=== PATIENT | male | born 1950 | race Caucasian/White ===

== ENCOUNTER 2019-12-06 17:37 | Observation (INO) | payer OTHER, MEDICARE ==
[2019-12-06 18:26] LABS: Basophils # (A) 0.1 k/uL (0-0.2); Basophils % (A) 1 %; Eosinophils # (A) 0.2 k/uL (0-0.7); Eosinophils % (A) 3 %; HCT 53.8 % (39.0-53.0); HGB 17.5 gm/dL (13.0-17.5); Lymphocytes % (A) 28 %; MCH 29.4 pg (25.0-35.0); MCHC 32.6 g/dL (31.0-37.0); MCV 90.1 fL (80.0-100.0); Mean Platelet Volume 8.4; Monocytes # (A) 0.5 k/uL (0-1.0); Monocytes % (A) 7 %; Neutrophils # (A) 4.2 k/uL (1.3-7.7); Neutrophils % (A) 58 %; Platelet Count 229 k/uL (150-450); RBC 5.97 m/uL (4.30-5.90); RDW 13.2 % (11.5-15.5); WBC 7.3 k/uL (3.8-10.6)
[2019-12-06 18:40] LABS: Albumin 4.6 g/dL (3.5-5.0); Calcium 9.8 mg/dL (8.4-10.2); Magnesium 1.9 mg/dL (1.6-2.3); Potassium 4.8 mmol/L (3.5-5.1); Total Bilirubin 0.7 mg/dL (0.2-1.3); Total Protein 7.7 g/dL (6.3-8.2)
[2019-12-06 18:44] LABS: Partial Thromboplastin Time 23.1 sec (22.0-30.0); Prothrombin Time 10.5 sec (9.0-12.0)
[2019-12-06] MEDS ORDERED: HEPARIN SODIUM,PORCINE 5,000 UNIT/ML 1 ML VIAL IV ONE (18:55)
[2019-12-06] MEDS ORDERED: HEPARIN SODIUM,PORCINE 5,000 UNIT/ML 1 ML VIAL IV PRN (18:55)
--- NOTE | 2019-12-06 18:59 | ED ---
Arrhythmia/Palpitations HPI - General Chief Complaint: Arrhythmia/Palpitations Stated Complaint: [facility] Time Seen by Provider: 12/06/19 17:40 Source: patient Mode of arrival: ambulatory Limitations: no limitations - History of Present Illness Initial Comments: Patient is a 69-year-old male who presents emergency department with reported new-onset A. fib. The patient reports that he was at the [facility] today for follow-up for sinusitis that he is dealing with since the end of September. He states he's been on 2 different antibiotics for which she was placed on med express. He is also had a course of Flonase and steroids. Patient has had p ersistent nasal drainage and sinus pressure and therefore followed up with his primary care doctor today. Her doctor noted that the patient's heart rate was irregular. He did an EKG and found the patient being A. fib. Denies a history of similar. Denies any chest pain or shortness of breath. Has reported to fatigue over the past several weeks which he thought was related to his infection. Patient denies previous history of cardiac disease. No ripping or tearing patient is back. No fevers or chills. No calf pain or swelling. No pedal edema. Denies melenic stools or hematochezia. No other alleviating, precipitating or modifying factors - Related Data Home Medications Medication Instructions Recorded Confirmed Cephalexin [Keflex] 500 mg PO TID 12/06/19 12/06/19 Fluticasone Nasal [place] [Flonase 2 spr EA NOSTRIL DAILY 12/06/19 12/06/19 Nasal Rison] Multivitamins, Thera [Multivitamin 1 tab PO DAILY 12/06/19 12/06/19 (formulary)] Previous Rx's Medication Instructions Recorded Apixaban [Eliquis] 5 mg PO BID #60 tab 12/07/19 Metoprolol Tartrate [Lopressor] 25 mg PO BID #60 tab 12/08/19 lisinopriL [Zestril] 20 mg PO DAILY tab 12/08/19 Allergies Allergy/AdvReac Type Severity Reaction Status Date / Time No Known Allergies Allergy Verified 12/06/19 18:13 Review of Systems ROS Statement: Those systems with pertinent positive or pertinent negative responses have been documented in the HPI. ROS Other: All systems not noted in ROS Statement are negative. Past Medical History Past Medical History: Atrial Fibrillation, Hypertension History of Any Multi-Drug Resistant Organisms: None Reported Past Surgical History: Hernia Repair Past Psychological History: No Psychological Hx Reported Smoking Status: Former smoker Past Alcohol Use History: None Reported Past Drug Use History: None Reported General Exam Limitations: no limitations General appearance: alert, in no apparent distress Head exam: Present: atraumatic, normocephalic, normal inspection Eye exam: Present: normal appearance, PERRL, EOMI. Absent: scleral icterus, conjunctival injection, periorbital swelling ENT exam: Present: normal exam, mucous membranes moist Neck exam: Present: normal inspection. Absent: tenderness, meningismus, lymphadenopathy Respiratory exam: Present: normal lung sounds bilaterally. Absent: respiratory distress, wheezes, rales, rhonchi, stridor Cardiovascular Exam: Present: regular rate, irregular rhythm, normal heart sounds. Absent: systolic murmur, diastolic murmur, rubs, gallop, clicks GI/Abdominal exam: Present: soft, normal bowel sounds. Absent: distended, tenderness, guarding, rebound, rigid Extremities exam: Present: normal inspection, full ROM, normal capillary refill. Absent: tenderness, pedal edema, joint swelling, calf tenderness Back exam: Present: normal inspection Neurological exam: Present: alert, oriented X3, CN II-XII intact Psychiatric exam: Present: normal affect, normal mood Skin exam: Present: warm, dry, intact, normal color. Absent: rash Course Vital Signs 12/06/19 12/06/19 12/06/19 17:41 19:06 19:21 Temperature 98.4 F 98.5 F Pulse Rate 90 96 96 Respiratory 20 16 18 Rate Blood Pressure 172/101 149/117 155/120 O2 Sat by Pulse 99 98 Oximetry 12/06/19 19:56 Temperature Pulse Rate 90 Respiratory 18 Rate Blood Pressure 150/111 O2 Sat by Pulse Oximetry EKG Findings - EKG Comments: EKG Findings:: EKG demonstrates atrial fibrillation with a rate of 88. Her S 88. QTC of 406. Inverted T-wave in lead 3. No acute ST segment elevations Medical Decision Making - Medical Decision Making Upon the patient is placed in room 7. A thorough history and physical exam was performed. Patient is a new onset A. fib with a controlled ventricular rate. Patient has no contra indications to anticoagulation. Laboratory studies were conducted and a chest x-ray was performed. Lab studies demonstrate a hemoglobin of 17.5. Chest x-ray demonstrates no acute intrathoracic process. The patient is started on heparin drip as he has no contraindications. Patient will be admitted for cardiology consultation. Patient agree to this. Discussed case with Clemencia from [facility]. Patient was then transported to floor in stable condition - Lab Data Result diagrams: 12/08/19 06:06 12/07/19 05:39 Lab Results 12/06/19 12/06/19 12/06/19 Range/Units 18:15 18:15 18:15 WBC 7.3 (3.8-10.6) k/uL RBC 5.97 H (4.30-5.90) m/uL Hgb 17.5 (13.0-17.5) gm/dL Hct 53.8 H (39.0-53.0) % MCV 90.1 (80.0-100.0) fL MCH 29.4 (25.0-35.0) pg MCHC 32.6 (31.0-37.0) g/dL RDW 13.2 (11.5-15.5) % Plt Count 229 (150-450) k/uL Neutrophils % 58 % Lymphocytes % 28 % Monocytes % 7 % Eosinophils % 3 % Basophils % 1 % Neutrophils # 4.2 (1.3-7.7) k/uL Lymphocytes # 2.0 (1.0-4.8) k/uL Monocytes # 0.5 (0-1.0) k/uL Eosinophils # 0.2 (0-0.7) k/uL Basophils # 0.1 (0-0.2) k/uL PT 10.5 (9.0-12.0) sec INR 1.0 (<1.2) APTT 23.1 (22.0-30.0) sec Sodium 136 L (137-145) mmol/L Potassium 4.8 (3.5-5.1) mmol/L Chloride 102 (98-107) mmol/L Carbon Dioxide 26 (22-30) mmol/L Anion Gap 8 mmol/L BUN 14 (9-20) mg/dL Creatinine 1.02 (0.66-1.25) mg/dL Est GFR (CKD-EPI)AfAm 88 (>60 ml/min/1.73 sqM) Est GFR (CKD-EPI)NonAf 76 (>60 ml/min/1.73 sqM) Glucose 92 (74-99) mg/dL Calcium 9.8 (8.4-10.2) mg/dL Magnesium 1.9 (1.6-2.3) mg/dL Total Bilirubin 0.7 (0.2-1.3) mg/dL AST 28 (17-59) U/L ALT 21 (4-49) U/L Alkaline Phosphatase 67 (38-126) U/L Troponin I (0.000-0.034) ng/mL Total Protein 7.7 (6.3-8.2) g/dL Albumin 4.6 (3.5-5.0) g/dL TSH 2.690 (0.465-4.680) mIU/L 12/06/19 Range/Units 18:15 WBC (3.8-10.6) k/uL RBC (4.30-5.90) m/uL Hgb (13.0-17.5) gm/dL Hct (39.0-53.0) % MCV (80.0-100.0) fL MCH (25.0-35.0) pg MCHC (31.0-37.0) g/dL RDW (11.5-15.5) % Plt Count (150-450) k/uL Neutrophils % % Lymphocytes % % Monocytes % % Eosinophils % % Basophils % % Neutrophils # (1.3-7.7) k/uL Lymphocytes # (1.0-4.8) k/uL Monocytes # (0-1.0) k/uL Eosinophils # (0-0.7) k/uL Basophils # (0-0.2) k/uL PT (9.0-12.0) sec INR (<1.2) APTT (22.0-30.0) sec Sodium (137-145) mmol/L Potassium (3.5-5.1) mmol/L Chloride (98-107) mmol/L Carbon Dioxide (22-30) mmol/L Anion Gap mmol/L BUN (9-20) mg/dL Creatinine (0.66-1.25) mg/dL Est GFR (CKD-EPI)AfAm (>60 ml/min/1.73 sqM) Est GFR (CKD-EPI)NonAf (>60 ml/min/1.73 sqM) Glucose (74-99) mg/dL Calcium (8.4-10.2) mg/dL Magnesium (1.6-2.3) mg/dL Total Bilirubin (0.2-1.3) mg/dL AST (17-59) U/L ALT (4-49) U/L Alkaline Phosphatase (38-126) U/L Troponin I <0.012 (0.000-0.034) ng/mL Total Protein (6.3-8.2) g/dL Albumin (3.5-5.0) g/dL TSH (0.465-4.680) mIU/L Critical Care Time Critical Care Time: Yes Critical Care Time: 32 minutes Disposition Clinical Impression: Atrial fibrillation, Hypertension Disposition: ADMITTED IP TO THIS [facility] Condition: Stable Is patient prescribed a controlled substance at d/c from ED?: No Decision to Admit Reason: Admit from EC Decision Date: 12/06/19 Decision Time: 19:10
[2019-12-06] MEDS ORDERED: HEPARIN SOD,PORK IN 0.45% NACL 25,000 UNIT in 0.45% NACL 1 250ML.BAG IV SCH (19:00)
--- NOTE | 2019-12-06 19:05 | XR ---
EXAMINATION: XR chest 2V DATE AND TIME: 12/06/2019 6:30 PM CLINICAL INDICATION: PHH; dysrhythmia TECHNIQUE: Departmental protocol COMPARISON: 02/26/2014 FINDINGS: The lungs are clear. The pleural spaces are negative. The cardiac silhouette is not enlarged. The remainder of the mediastinal silhouette is unremarkable. The skeletal structures and soft tissues are negative for acute findings. IMPRESSION: NO ACUTE PROCESS.
[2019-12-06] MEDS ORDERED: NALOXONE 0.4 MG/ML 1 ML VIAL IV PRN (19:10)
[2019-12-06] MEDS: lisinopriL 10 MG TAB PO SCH (19:39)
[2019-12-06] MEDS: CEPHALEXIN 500 MG CAP PO SCH (21:32)
[2019-12-07] MEDS ORDERED: ACETAMINOPHEN TAB 325 MG TAB PO PRN (03:39)
[2019-12-07 05:53] LABS: Basophils # (A) 0.1 k/uL (0-0.2); Basophils % (A) 1 %; Eosinophils # (A) 0.2 k/uL (0-0.7); Eosinophils % (A) 3 %; HCT 52.8 % (39.0-53.0); HGB 17.4 gm/dL (13.0-17.5); Lymphocytes % (A) 30 %; MCH 29.8 pg (25.0-35.0); MCV 90.3 fL (80.0-100.0); Mean Platelet Volume 8.2; Monocytes # (A) 0.5 k/uL (0-1.0); Monocytes % (A) 8 %; Neutrophils # (A) 3.7 k/uL (1.3-7.7); Neutrophils % (A) 56 %; Platelet Count 225 k/uL (150-450); RBC 5.85 m/uL (4.30-5.90); RDW 13.1 % (11.5-15.5); WBC 6.6 k/uL (3.8-10.6)
[2019-12-07 06:00] LABS: INR 1.1 (<1.2); Prothrombin Time 10.8 sec (9.0-12.0)
[2019-12-07 06:27] LABS: African American GFR (CKD) >90 (>60 ml/min/1.73 sqM); Anion Gap 5 mmol/L; Blood Urea Nitrogen 12 mg/dL (9-20); Calcium 9.1 mg/dL (8.4-10.2); Carbon Dioxide 26 mmol/L (22-30); Chloride 105 mmol/L (98-107); Glucose 104 mg/dL (74-99); Non-African American GFR(CKD) >90 (>60 ml/min/1.73 sqM); Potassium 4.4 mmol/L (3.5-5.1); Sodium 136 mmol/L (137-145)
[2019-12-07] MEDS: lisinopriL 10 MG TAB PO SCH (08:23)
[2019-12-07] MEDS: CEPHALEXIN 500 MG CAP PO SCH ×3 (08:23→20:06)
[2019-12-07] MEDS: MULTIVITAMINS, THERA 1 EACH TAB PO SCH (08:23)
[2019-12-07] MEDS ORDERED: FLUTICASONE 50MCG/SPRAY NASAL 16GM EA NOSTRIL SCH (09:00)
[2019-12-07] MEDS ORDERED: HEPARIN SODIUM,PORCINE 5,000 UNIT/ML 1 ML VIAL IV STA ×3 (09:57→10:09)
--- NOTE | 2019-12-07 11:00 | ECHOF ---
Referral Reason:baseline echo, new afib MEASUREMENTS -------- HEIGHT: 182.9 cm WEIGHT: 118.4 kg BP: 176/100 RVIDd: 3.4 cm (< 3.3) IVSd: 1.6 cm (0.6 - 1.1) LVIDd: 4.2 cm (3.9 - 5.3) LVPWd: 1.5 cm (0.6 - 1.1) IVSs: 2.0 cm LVIDs: 2.3 cm LVPWs: 1.9 cm LA Diam: 4.4 cm (2.7 - 3.8) LAESV Index (A-L): 32.15 ml/m Ao Diam: 3.5 cm (2.0 - 3.7) AV Cusp: 2.3 cm (1.5 - 2.6) MV EXCURSION: 24.295 mm (> 18.000) MV EF SLOPE: 134 mm/s (70 - 150) EPSS: 0.3 cm RAP: 5.00 mmHg RVSP: 28.48 mmHg FINDINGS -------- Atrial fibrillation. This was a technically adequate study. The left ventricular size is normal. There is moderate concentric left ventricular hypertrophy. O verall left ventricular systolic function is low-normal with, an EF between 50 - 55 %. The right ventricle is mildly enlarged. LA is midly dilated 29-33ml/m2. The right atrium is normal in size. Interatrial and interventricular septum intact. The aortic valve is trileaflet and appears structurally normal. There is trace mitral regurgitation. Mild tricuspid regurgitation present. Right ventricular systolic pressure is normal at < 35 mmHg. Trace/mild (physiologic) pulmonic regurgitation. The aortic root size is normal. Normal inferior vena cava with normal inspiratory collapse consistent with estimated right atrial pre ssure of 5 mmHg. There is no pericardial effusion. CONCLUSIONS -------- 1. Atrial fibrillation. 2. This was a technically adequate study. 3. The left ventricular size is normal. 4. There is moderate concentric left ventricular hypertrophy. 5. Overall left ventricular systolic function is low-normal with, an EF between 50 - 55 %. 6. The right ventricle is mildly enlarged. 7. LA is midly dilated 29-33ml/m2. 8. The aortic valve is trileaflet and appears structurally normal. 9. There is trace mitral regurgitation. 10. Mild tricuspid regurgitation present. 11. Trace/mild (physiologic) pulmonic regurgitation. 12. There is no pericardial effusion. [employer]: Jade Nuñez RDCS
[2019-12-07] MEDS ORDERED: lisinopriL 10 MG TAB PO STA (13:11)
--- NOTE | 2019-12-07 13:37 | P.CRDCN ---
History of Present Illness Consult date: 12/07/19 History of present illness: CHIEF COMPLAINT: A. fib HISTORY OF PRESENT ILLNESS: 69-year-old male who presented to the emergency room after being evaluated at the [facility] for sinusitis and was found to be in atrial fibrillation. Patient states he does not follow with a PCP regularly. He has never seen a binding cutter synthetic cloth. He states "I avoid all doctors as much as I can". Patient was found to be in afib upon presentation to the hospital. He denies known previous history of any irregular heartbeat. He denies shortness of breat h or chest pain. He does report occasionally feeling palpitations or fluttering at home. DIAGNOSTICS: EKG reveals atrial fibrillation with controlled rate Chest xray negative for acute process Laboratory data: WBC 6.6. Hemoglobin 17.4. Platelet count 125. Sodium 136. Potassium 4.4. BUN 12. Creatinine 0.83. Magnesium 1.9. Troponin negative 1. TSH 2.690 Current home cardiac medications include lisinopril 10 mg daily REVIEW OF SYSTEMS: CONSTITUTIONAL: Denies fever or chills. HEENT: Denies blurred vision, vision changes, or eye pain. Denies hemoptysis CARDIOVASCULAR: Denies chest pain, orthopnea, PND. Reports occasionally feeling palpitations RESPIRATORY: No shortness of breath. GASTROINTESTINAL: Denies abdominal pain. Denies nausea or vomiting. HEMATOLOGIC: Denies bleeding disorders. GENITOURINARY: Denies any blood in urine. SKIN: Denies pruitis. Denies rash. PHYSICAL EXAM: VITAL SIGNS: Reviewed. GENERAL: Well-developed in no acute distress. HEENT: Head is normocephalic. Pupils are equal, round. Sclerae anicteric. Mucous membranes of the mouth are moist. Neck supple. No JVD or thyromegaly LUNGS: Respirations even and unlabored. Lungs essentially clear to auscultation bilaterally. HEART: Irregular rate and rhythm. S1 and S2 heard. ABDOMEN: Soft. Nontender. EXTREMITIES: Normal range of motion. No clubbing or cyanosis. Peripheral pulses intact. No lower extremity edema NEUROLOGIC: Awake and alert. Oriented x 3. ASSESSMENT: 1. New onset atrial fibrillation PLAN: -Begin Eliquis. Continue IV heparin until dose of Eliquis is given, then DC heparin drip -Obtain echocardiogram -Begin beta shaista -Possible discharge tomorrow Nurse practitioner note has been reviewed by physician. Signing provider agrees with the documented findings, assessment, and plan of care. Past Medical History Past Medical History: Atrial Fibrillation, Hypertension History of Any Multi-Drug Resistant Organisms: None Reported Past Surgical History: Hernia Repair Past Psychological History: No Psychological Hx Reported Smoking Status: Former smoker Past Alcohol Use History: None Reported Past Drug Use History: None Reported Medications and Allergies Home Medications Medication Instructions Recorded Confirmed Type Cephalexin [Keflex] 500 mg PO TID 12/06/19 12/06/19 History Fluticasone Nasal [place] [Flonase 2 spr EA NOSTRIL DAILY 12/06/19 12/06/19 History Nasal [place]] Lisinopril [Zestril] 10 mg PO DAILY 12/06/19 12/06/19 History Multivitamins, Thera [Multivitamin 1 tab PO DAILY 12/06/19 12/06/19 History (formulary)] Apixaban [Eliquis] 5 mg PO BID #60 tab 12/07/19 Rx Allergies Allergy/AdvReac Type Severity Reaction Status Date / Time No Known Allergies Allergy Verified 12/06/19 18:13 Physical Exam Vitals: Vital Signs Temp Pulse Pulse Resp BP BP Pulse Ox 12/07/19 03:57 97.9 F 84 18 176/100 97 12/06/19 23:46 97.4 F L 83 18 148/103 96 12/06/19 20:13 18 178/111 98 12/06/19 19:56 90 18 150/111 12/06/19 19:21 98.5 F 96 18 155/120 12/06/19 19:06 96 16 149/117 98 12/06/19 17:41 98.4 F 90 20 172/101 99 Intake and Output 12/06/19 12/07/19 12/07/19 22:59 06:59 14:59 Intake Total 75.795 Balance 75.795 Intake: Intake, IV Titration 75.795 Amount Heparin Sod,Pork in 0.45% 75.795 NaCl 25,000 unit In 0.45 % NaCl 1 250ml.bag @ 8.41 UNITS/KG/HR 9.995 mls/hr IV .Q24H [facility] Rx#: [id number] Other: Voiding Method Toilet # Voids 1 1 Weight 118.841 kg 118.6 kg Results 12/07/19 05:39 12/07/19 05:39 Cardiac Enzymes 12/06/19 12/06/19 Range/Units 18:15 18:15 AST 28 (17-59) U/L Troponin I <0.012 (0.000-0.034) ng/mL Coagulation 12/06/19 12/07/19 12/07/19 Range/Units 18:15 01:11 05:39 PT 10.5 10.8 (9.0-12.0) sec APTT 23.1 33.6 H (22.0-30.0) sec 12/07/19 Range/Units 08:42 PT (9.0-12.0) sec APTT 40.7 H (22.0-30.0) sec CBC 12/06/19 12/07/19 Range/Units 18:15 05:39 WBC 7.3 6.6 (3.8-10.6) k/uL RBC 5.97 H 5.85 (4.30-5.90) m/uL Hgb 17.5 17.4 (13.0-17.5) gm/dL Hct 53.8 H 52.8 (39.0-53.0) % Plt Count 229 225 (150-450) k/uL Comprehensive Metabolic Panel 12/06/19 12/07/19 Range/Units 18:15 05:39 Sodium 136 L 136 L (137-145) mmol/L Potassium 4.8 4.4 (3.5-5.1) mmol/L Chloride 102 105 (98-107) mmol/L Carbon Dioxide 26 26 (22-30) mmol/L BUN 14 12 (9-20) mg/dL Creatinine 1.02 0.83 (0.66-1.25) mg/dL Glucose 92 104 H (74-99) mg/dL Calcium 9.8 9.1 (8.4-10.2) mg/dL AST 28 (17-59) U/L ALT 21 (4-49) U/L Alkaline Phosphatase 67 (38-126) U/L Total Protein 7.7 (6.3-8.2) g/dL Albumin 4.6 (3.5-5.0) g/dL Current Medications Generic Name Dose Route Start Last Admin Trade Name Freq PRN Reason Stop Dose Admin Acetaminophen 650 mg 12/07/19 03:39 Tylenol Tab PO Q6HR PRN Fever and/ or Pain Cephalexin 500 mg 12/06/19 22:00 12/07/19 08:23 Keflex PO 500 mg TID [facility] Administration Fluticasone Propionate 2 spray 12/07/19 09:00 12/07/19 09:13 Flonase Nasal [place] EA NOSTRIL 2 spray DAILY [facility] Administration Heparin Sodium (Porcine) 0 unit 12/06/19 18:55 Heparin IV PER PROTOCOL PRN Low PTT Protocol Heparin Sodium/Sodium Chloride 250 mls @ 9.995 mls/hr 12/06/19 19:00 12/07/19 02:39 25,000 unit/ Sodium Chloride IV 11.41 units/kg/hr .Q24H [facility] 13.56 mls/hr Titration Protocol 8.41 UNITS/KG/HR Lisinopril 10 mg 12/06/19 19:15 12/07/19 08:23 Zestril PO 10 mg DAILY [facility] Administration Multivitamins 1 each 12/07/19 09:00 12/07/19 08:23 Theragran PO 1 each DAILY [facility] Administration Naloxone HCl 0.2 mg 12/06/19 19:10 Narcan IV Q2M PRN Opioid Reversal Intake and Output 12/06/19 12/07/19 12/07/19 22:59 06:59 14:59 Intake Total 75.795 Balance 75.795 Intake: Intake, IV Titration 75.795 Amount Heparin Sod,Pork in 0.45% 75.795 NaCl 25,000 unit In 0.45 % NaCl 1 250ml.bag @ 8.41 UNITS/KG/HR 9.995 mls/hr IV .Q24H [facility] Rx#: [id number] Other: Voiding Method Toilet # Voids 1 1 Weight 118.841 kg 118.6 kg 12/07/19 05:39 12/07/19 05:39
[2019-12-07] MEDS: METOPROLOL TARTRATE 25 MG TAB PO SCH ×2 (14:03→20:06)
[2019-12-07] MEDS: APIXABAN 5 MG TAB PO SCH ×2 (14:03→20:06)
--- NOTE | 2019-12-07 14:23 | P.HPIM ---
History of Present Illness 69-year-old pleasant gentleman came in because of atrial fibrillation patient is found to be in A. fib and PCPs office. Patient is presently rate controlled. Patient was on Cardizem which was discontinued patient is still in A. fib patient will be started on metoprolol Cardizem was discontinued patient is on IV heparin patient will be started on Eliquis. Patient the echo cardiac exam showed normal ejection fraction. Patient was being treated for sinusitis with the Keflex which was started yesterday. Review of Systems REVIEW OF SYSTEMS: CONSTITUTIONAL: No fever, no malaise, no fatigue. HEENT: No recent visual problems or hearing problems. Denied any sore throat. CARDIOVASCULAR: No chest pain, orthopnea, PND, no palpitations, no syncope. PULMONARY: No shortness of breath, no cough, no hemoptysis. GASTROINTESTINAL: No diarrhea, no nausea, no vomiting, no abdominal pain. NEUROLOGICAL: No headaches, no weakness, no numbness. HEMATOLOGICAL: Denies any bleeding or petechiae. GENITOURINARY: Denies any burning micturition, frequency, or urgency. MUSCULOSKELETAL/RHEUMATOLOGICAL: Denies any joint pain, swelling, or any muscle pain. ENDOCRINE: Denies any polyuria or polydipsia. The rest of the 14-point review of systems is negative. Past Medical History Past Medical History: Atrial Fibrillation, Hypertension History of Any Multi-Drug Resistant Organisms: None Reported Past Surgical History: Hernia Repair Past Psychological History: No Psychological Hx Reported Smoking Status: Former smoker Past Alcohol Use History: None Reported Past Drug Use History: None Reported Medications and Allergies Home Medications Medication Instructions Recorded Confirmed Type Cephalexin [Keflex] 500 mg PO TID 12/06/19 12/06/19 History Fluticasone Nasal [place] [Flonase 2 spr EA NOSTRIL DAILY 12/06/19 12/06/19 History Nasal [place]] Lisinopril [Zestril] 10 mg PO DAILY 12/06/19 12/06/19 History Multivitamins, Thera [Multivitamin 1 tab PO DAILY 12/06/19 12/06/19 History (formulary)] Apixaban [Eliquis] 5 mg PO BID #60 tab 12/07/19 Rx Allergies Allergy/AdvReac Type Severity Reaction Status Date / Time No Known Allergies Allergy Verified 12/06/19 18:13 Physical Exam Vitals: Vital Signs Temp Pulse Pulse Resp BP BP Pulse Ox 12/07/19 12:00 98 16 156/101 97 12/07/19 08:00 97.7 F 98 16 152/102 97 12/07/19 03:57 97.9 F 84 18 176/100 97 12/06/19 23:46 97.4 F L 83 18 148/103 96 12/06/19 20:13 18 178/111 98 12/06/19 19:56 90 18 150/111 12/06/19 19:21 98.5 F 96 18 155/120 12/06/19 19:06 96 16 149/117 98 12/06/19 17:41 98.4 F 90 20 172/101 99 Intake and Output 12/06/19 12/07/19 12/07/19 22:59 06:59 14:59 Intake Total 75.795 98.191 Balance 75.795 98.191 Intake: Intake, IV Titration 75.795 98.191 Amount Heparin Sod,Pork in 0.45% 75.795 98.191 NaCl 25,000 unit In 0.45 % NaCl 1 250ml.bag @ 8.41 UNITS/KG/HR 9.995 mls/hr IV .Q24H [facility] Rx#: [id number] Other: Voiding Method Toilet Toilet # Voids 1 1 Weight 118.841 kg 118.6 kg PHYSICAL EXAMINATION: GENERAL: The patient is alert and oriented x3, not in any acute distress. Well developed, well nourished. HEENT: Pupils are round and equally reacting to light. EOMI. No scleral icterus. No conjunctival pallor. Normocephalic, atraumatic. No pharyngeal erythema. No thyromegaly. CARDIOVASCULAR: S1 and S2 present. No murmurs, rubs, or gallops. Irregularly irregular rhythm PULMONARY: Chest is clear to auscultation, no wheezing or crackles. ABDOMEN: Soft, nontender, nondistended, normoactive bowel sounds. No palpable organomegaly. MUSCULOSKELETAL: No joint swelling or deformity. EXTREMITIES: No cyanosis, clubbing, or pedal edema. NEUROLOGICAL: Gross neurological examination did not reveal any focal deficits. SKIN: No rashes. Results CBC & Chem 7: 12/07/19 05:39 12/07/19 05:39 Labs: Abnormal Lab Results - Last 24 Hours (Table) 12/06/19 12/06/19 12/07/19 Range/Units 18:15 18:15 01:11 RBC 5.97 H (4.30-5.90) m/uL Hct 53.8 H (39.0-53.0) % APTT 33.6 H (22.0-30.0) sec Sodium 136 L (137-145) mmol/L Glucose (74-99) mg/dL 12/07/19 12/07/19 Range/Units 05:39 08:42 RBC (4.30-5.90) m/uL Hct (39.0-53.0) % APTT 40.7 H (22.0-30.0) sec Sodium 136 L (137-145) mmol/L Glucose 104 H (74-99) mg/dL Assessment and Plan Plan: -New-onset A. fib: Patient had A. fib with rapid ventricular rate on admission patient is presently rate controlled still negative patient probably has pro ximal A. fib patient will be started on beta blockers as mentioned above, this can you Cardizem and the patient was started on Eliquis and discontinue IV heparin. -Hypertension -Sinusitis is being treated for rectal sanitized situs patient will be resumed on the same medications
[2019-12-07] MEDS ORDERED: hydrALAZINE HCL 20 MG/ML 1 ML VIAL IVP PRN (18:34)
[2019-12-07] MEDS ORDERED: amLODIPine 5 MG TAB PO STA (18:34)
[2019-12-07] MEDS ORDERED: APIXABAN 5 MG TAB PO SCH (21:00)
[2019-12-08 05:34] VITALS: TEMP 98
[2019-12-08 07:16] LABS: Basophils # (A) 0.1 k/uL (0-0.2); Basophils % (A) 1 %; Eosinophils # (A) 0.2 k/uL (0-0.7); Eosinophils % (A) 3 %; HCT 54.7 % (39.0-53.0); HGB 17.9 gm/dL (13.0-17.5); Lymphocytes # (A) 2.2 k/uL (1.0-4.8); Lymphocytes % (A) 34 %; MCH 29.8 pg (25.0-35.0); MCHC 32.7 g/dL (31.0-37.0); MCV 91.4 fL (80.0-100.0); Mean Platelet Volume 8.5; Monocytes # (A) 0.5 k/uL (0-1.0); Monocytes % (A) 8 %; Neutrophils # (A) 3.4 k/uL (1.3-7.7); Neutrophils % (A) 52 %; Platelet Count 216 k/uL (150-450); RBC 5.99 m/uL (4.30-5.90); RDW 13.2 % (11.5-15.5); WBC 6.6 k/uL (3.8-10.6)
[2019-12-08 07:27] LABS: INR 1.1 (<1.2); Prothrombin Time 11.3 sec (9.0-12.0)
--- NOTE | 2019-12-08 08:42 | P.PN ---
Subjective Progress Note Date: 12/08/19 Principal diagnosis: Paroxysmal atrial fibrillation This is a 69-year-old gentleman who was admitted to the hospital with A. fib with RVR and subsequently converted to normal sinus mechanism. That was a newly diagnosis to the patient. The patient was seen today, 12/08/2019. He remains asymptomatic from the cardiovascular standpoint of view. He is on beta shaista with metoprolol as well as oral anticoagulation. The echo revealed normal LV function. Cardiovascular standpoint of view, the patient can be discharged home. Objective - Vital Signs Vital signs: Vital Signs Temp 98.0 F 12/08/19 04:00 Pulse 65 12/08/19 04:00 Resp 18 12/08/19 04:00 BP 111/57 12/08/19 04:00 Pulse Ox 99 12/08/19 04:00 Intake & Output 12/07/19 12/08/19 12/08/19 18:59 06:59 18:59 Intake Total 98.191 240 Output Total 350 Balance 98.191 -110 Weight 117.6 kg Intake: Intake, IV Titration 98.191 Amount Heparin Sod,Pork in 0.45% 98.191 NaCl 25,000 unit In 0.45 % NaCl 1 250ml.bag @ 8.41 UNITS/KG/HR 9.995 mls/hr IV .Q24H [facility] Rx#: [id number] Oral 240 Output: Urine 350 Other: Voiding Method Toilet Toilet # Voids 2 3 - Constitutional General appearance: Present: no acute distress - Respiratory Respiratory: bilateral: CTA - Cardiovascular Rhythm: regular Heart sounds: normal: S1, S2 - Labs CBC & Chem 7: 12/08/19 06:06 12/07/19 05:39 Labs: Abnormal Lab Results - Last 24 Hours (Table) 12/07/19 12/08/19 Range/Units 08:42 06:06 RBC 5.99 H (4.30-5.90) m/uL Hgb 17.9 H (13.0-17.5) gm/dL Hct 54.7 H (39.0-53.0) % APTT 40.7 H (22.0-30.0) sec Assessment and Plan Assessment: Assessment #1 paroxysmal atrial fibrillation Plan #1 continue the current medical regimen The patient can be discharged home
[2019-12-08] MEDS: METOPROLOL TARTRATE 25 MG TAB PO SCH (08:43)
[2019-12-08] MEDS: APIXABAN 5 MG TAB PO SCH (08:43)
[2019-12-08] MEDS: CEPHALEXIN 500 MG CAP PO SCH (08:43)
[2019-12-08] MEDS: MULTIVITAMINS, THERA 1 EACH TAB PO SCH (08:43)
[2019-12-08] MEDS ORDERED: amLODIPine 5 MG TAB PO SCH (09:00)
[2019-12-08] MEDS ORDERED: lisinopriL 20 MG TAB PO SCH (09:00)
[2019-12-08 13:29] VITALS: BP 121/92; PULSE 74; RESP 16
--- NOTE | 2019-12-08 14:08 | P.DS ---
Providers Date of admission: 12/06/19 19:10 Attending physician: Svitlana Nuñez Consults: 12/06/19 19:10 Consult Physician Urgent Consulting Provider: [facility] Consult Reason/Comments: new onset afib Do you want consulting provider notified?: Yes Primary care physician: [facility] Course: 69-year-old pleasant gentleman came in because of atrial fibrillation patient is found to be in A. fib and PCPs office. Patient is presently rate controlled. Patient was on Cardizem which was discontinued patient is still in A. fib patient will be started on metoprolol Cardizem was discontinued patient is on IV heparin patient will be started on Eliquis. Patient the echo cardiac exam showed normal ejection fraction. Patient was being treated for sinusitis with the Keflex which was started yesterday. 12/07/2028 and patient is rate controlled at this time patient will be started on Eliquis patient was having fatigue at home probably because of persistent A. fib. Patient is cleared by cardiology patient will be discharged on Eliquis and metoprolol. Patient will only require 20 mg of lisinopril will not require any other additional anti-happens medications in my opinion considering his blood pressure readings here patient was asked to check his blood pressure 3 times a day at home take it to PCP for appropriate management of his hypertension. PHYSICAL EXAMINATION: GENERAL: The patient is alert and oriented x3, not in any acute distress. Well developed, well nourished. HEENT: Pupils are round and equally reacting to light. EOMI. No scleral icterus. No conjunctival pallor. Normocephalic, atraumatic. No pharyngeal erythema. No thyromegaly. CARDIOVASCULAR: S1 and S2 present. No murmurs, rubs, or gallops. Irregularly irregular rhythm PULMONARY: Chest is clear to auscultation, no wheezing or crackles. ABDOMEN: Soft, nontender, nondistended, normoactive bowel sounds. No palpable organomegaly. MUSCULOSKELETAL: No joint swelling or deformity. EXTREMITIES: No cyanosis, clubbing, or pedal edema. NEUROLOGICAL: Gross neurological examination did not reveal any focal deficits. SKIN: No rashes. Final diagnosis -New-onset A. fib presently rate controlled -Hypertension - sinusitis Patient Condition at Discharge: Stable Plan - Discharge Summary Discharge Rx Participant: No New Discharge Prescriptions: New Apixaban [Eliquis] 5 mg PO BID #60 tab Metoprolol Tartrate [Lopressor] 25 mg PO BID #60 tab lisinopriL [Zestril] 20 mg PO DAILY tab Continue Multivitamins, Thera [Multivitamin (formulary)] 1 tab PO DAILY Fluticasone Nasal [place] [Flonase Nasal [place]] 2 spr EA NOSTRIL DAILY Cephalexin [Keflex] 500 mg PO TID Discontinued Lisinopril [Zestril] 10 mg PO DAILY Discharge Medication List Cephalexin [Keflex] 500 mg PO TID 12/06/19 [History] Fluticasone Nasal [place] [Flonase Nasal [place]] 2 spr EA NOSTRIL DAILY 12/06/19 [History] Multivitamins, Thera [Multivitamin (formulary)] 1 tab PO DAILY 12/06/19 [History] Apixaban [Eliquis] 5 mg PO BID #60 tab 12/07/19 [Rx] Metoprolol Tartrate [Lopressor] 25 mg PO BID #60 tab 12/08/19 [Rx] lisinopriL [Zestril] 20 mg PO DAILY tab 12/08/19 [Rx] Follow up Appointment(s)/Referral(s): Max Smith MD [STAFF PHYSICIAN] - 1 Week (Call office to make appointment for 1 week with ) [facility] [Primary Care Provider] - 3 Days (Call to set up appointment to see primary Doctor with in 3 days ) Patient Instructions/Handouts: A-fib (Atrial Fibrillation) (DC), A-fib (Atrial Fibrillation) (GEN), Heart Healthy Diet (DC), Hypertension (DC) Discharge Disposition: HOME SELF-CARE
== END 2019-12-08 15:11 | disposition home or self-care (01) ==
LOC: EC 17:37 → 3SCARD 19:10
PROVIDERS: ADMIT Hospitalist; ATTEND Hospitalist
DX: I48.19 Other persistent atrial fibrillation (principal); I10 Essential (primary) hypertension; Z79.01 Long term (current) use of anticoagulants; Z79.899 Other long term (current) drug therapy; Z87.891 Personal history of nicotine dependence; J32.9 Chronic sinusitis, unspecified
CPT/HCPCS: 96376 ×2; 96366 ×2; 96365; 99285; 36415; 93005; 93306; 80053; 80048; 84443; 83735; 84484; 85025 ×3; 85610 ×3; 85730 ×2; 71046; G0378 ×3; J1644 ×3

== ENCOUNTER 2019-12-21 07:51 | Day surgery (SDC) | payer MEDICARE, BC ==
[2019-12-19 10:28] VITALS: BMI 34.5
[~2019-12-21 07:51] MED LIST: SODIUM CHLORIDE 0.9% 1,000 ML IV SCH
[2019-12-21 08:39] VITALS: TEMP 98.5
[2019-12-21] MEDS ORDERED: PROPOFOL 10 MG/ML 20 ML VIAL IV ONE (08:53)
[2019-12-21] MEDS: BENZOCAINE SPRAY 1 CAN TOPICAL ONE ×2 (09:10→09:15)
[2019-12-21] MEDS ORDERED: SODIUM CHLORIDE 0.9% 500 ML 500 ML IV ONE (09:35)
[2019-12-21 09:47] VITALS: RESP 16
--- NOTE | 2019-12-21 10:37 | CE ---
CARDIAC ELECTROPHYSIOLOGY REPORT DATE OF SERVICE: December 21, 2019. PERFORMING PHYSICIAN: Max Smith MD. PROCEDURE PERFORMED: Cardioversion. INDICATION: This is a 69-year-old gentleman who was diagnosed with atrial fibrillation recently. A KATHYA was performed and left atrial appendage thrombus was ruled out. COMPLICATION: None. LEVEL OF SEDATION: Deep with propofol and FORMULATION CHEMIST in the room. PROCEDURE DESCRIPTION: After transesophageal echocardiogram was performed and left atrial appendage, as well as intracardiac thrombus were ruled out, we pursued with the cardioversion. The patient cardioverted from atrial fibrillation to normal sinus mechanism using 200 joules on first attempt. CONCLUSION: Successful cardioversion of atrial fibrillation to normal sinus mechanism using 200 joules on first attempt. MMODL / IJN: [id number] /
--- NOTE | 2019-12-21 10:37 | ECHOT ---
TRANSESOPHAGEAL ECHOCARDIOGRAM DATE OF SERVICE: December 21, 2019. PERFORMING PHYSICIAN: Max Smith MD. PROCEDURE PERFORMED: Transesophageal echocardiogram. INDICATION: Cardioversion. COMPLICATION: None. LEVEL OF SEDATION: Deep sedation was performed using propofol with AUTOMOTIVE PARTS SALESPERSON in the room. PROCEDURE DESCRIPTION: After obtaining an informed consent, the patient was brought to the recovery room. A pulse oximetry and heart rate monitor were attached to the patient. Subsequently, the patient was turned into left lateral position and a bite guard was placed. The patient's throat was sprayed using lidocaine. After that, the transesophageal echocardiogram probe was advanced through the bite guard to the mid esophagus where 2D echocardiogram images as well as color Doppler images of various cardiac structures were obtained. Particular attention was made to the left atrial appendage. The procedure was completed without any complication. FINDINGS: The left ventricular dimension and systolic function appeared to be within normal limits. The ejection fraction appeared to be in the range of 50%. The right ventricle appeared to be dilated. The left atrium and right atrium are severely dilated. The left atrial appendage appeared to be free from any thrombus. The interatrial septum appeared to be intact by color-flow Doppler. The aortic valve is a trileaflet valve without stenosis or regurgitation. The mitral valve seems to be thickened with evidence of moderate mitral regurgitation. The tricuspid valve and pulmonic valve appear to be within normal limits. SELECTIVE CORONARY ANGIOGRAM: The left atrial appendage appeared to be free from any thrombus. CONCLUSION: 1. Intact left atrial appendage without any evidence of thrombus. 2. Intact interatrial septum without any evidence of shunt by color-flow Doppler. 3. Severe biatrial enlargement. 4. Normal left ventricular dimension and systolic function. 5. Dilated right ventricle with normal function. 6. Thickened anterior and posterior mitral leaflet with evidence of moderate mitral regurgitation. 7. Moderate tricuspid regurgitation. 8. Trileaflet aortic valve without stenosis or regurgitation. 9. No evidence of pericardial effusion. POSTPROCEDURE MANAGEMENT: Proceed with cardioversion. MMODL / IJN: [id number] /
[2019-12-21 10:47] VITALS: BP 111/78; PULSE 72
== END 2019-12-21 11:40 | disposition home or self-care (01) ==
LOC: CATHCVL 07:51
PROVIDERS: ATTEND Internal Medicine Interventional Cardiology
DX: I08.1 Rheumatic disorders of both mitral and tricuspid valves (principal); I48.0 Paroxysmal atrial fibrillation; I10 Essential (primary) hypertension; E78.5 Hyperlipidemia, unspecified; F41.9 Anxiety disorder, unspecified; F32.9 Major depressive disorder, single episode, unspecified; G47.33 Obstructive sleep apnea (adult) (pediatric); Z79.01 Long term (current) use of anticoagulants; Z79.899 Other long term (current) drug therapy; Z99.89 Dependence on other enabling machines and devices; Z82.49 Family history of ischemic heart disease and other diseases of the circulatory system
CPT/HCPCS: 93312; 93320; 93005; 93325; 92960; J2704

== ENCOUNTER 2020-08-07 08:48 | Emergency (ER) | payer OTHER, MEDICARE, BC ==
[2020-08-07 08:59] VITALS: TEMP 98
[2020-08-07 09:10] LABS: Glucose,Whole Blood 128 mg/dL (75-99)
[2020-08-07 09:25] VITALS: RESP 16
[2020-08-07] MEDS ORDERED: SODIUM CHLORIDE 0.9% 500 ML 500 ML IV STA (09:29)
[2020-08-07] MEDS ORDERED: LORazepam 2 MG/ML INJ IV STA (09:29)
[2020-08-07] MEDS ORDERED: hydrALAZINE HCL 20 MG/ML 1 ML VIAL IVP STA (09:29)
--- NOTE | 2020-08-07 09:54 | ED ---
General Adult HPI - General Chief complaint: Neuro Symptoms/Deficit Stated complaint: Vision issues, dizziness Time Seen by Provider: 08/07/20 08:55 Source: patient, RN notes reviewed, old records reviewed Mode of arrival: ambulatory Limitations: no limitations - History of Present Illness Initial comments: This is a 69-year-old male with past medical history significant for high blood pressure. Patient states he was lying in bed yesterday morning and he opened his eyes and he saw what looked like a kaleidoscope in his vision. Patient states he opened it showed his eyes 3 times in a row and on the third time it went away. Patient states it lasts for a total of 3 seconds. This exact episode repeated itself last night at 10:00 and then cleared up completely. Patient denies any headache patient denies numbness weakness per patient denies any chest pain difficult breathing shortest breath. Patient denies abdominal pain. Patient denies any recent fever chills or cough per patient denies any shortness of breath. Patient denies being off balance though he does state when he walks on his slightly lightheaded. - Related Data Home Medications Medication Instructions Recorded Confirmed Multivitamins, Thera [Multivitamin 1 tab PO DAILY 12/06/19 12/21/19 (formulary)] Amoxicillin [Amoxicillin 125 MG 125 mg PO Q12H 12/19/19 12/21/19 Chew Tab] lisinopriL [Zestril] 20 mg PO 1400 12/19/19 12/21/19 Previous Rx's Medication Instructions Recorded Apixaban [Eliquis] 5 mg PO BID #60 tab 12/07/19 Metoprolol Tartrate [Lopressor] 25 mg PO BID #60 tab 12/08/19 Allergies Allergy/AdvReac Type Severity Reaction Status Date / Time No Known Allergies Allergy Verified 08/07/20 08:54 Review of Systems ROS Statement: Those systems with pertinent positive or pertinent negative responses have been documented in the HPI. ROS Other: All systems not noted in ROS Statement are negative. Past Medical History Past Medical History: Atrial Fibrillation, Hyperlipidemia, Hypertension, Sleep Apnea/CPAP/BIPAP Additional Past Medical History / Comment(s): recurrent sinus infection since October 2019- on antibioitcs which will finish 12/21/19-pt states symptoms resolved now History of Any Multi-Drug Resistant Organisms: None Reported Past Surgical History: Ablation, Hernia Repair, Orthopedic Surgery, Tonsillectomy Additional Past Surgical History / Comment(s): juliet inguinal hernia, juliet carpal tunnel Past Anesthesia/Blood Transfusion Reactions: No Reported Reaction Past Psychological History: Anxiety, Depression Smoking Status: Former smoker Past Alcohol Use History: None Reported Past Drug Use History: None Reported - Past Family History Sister(s) Family Medical History: Cancer General Exam - General Exam Comments Initial Comments: GENERAL: Patient is well-developed and well-nourished. Patient is nontoxic and well- hydrated and is in mild distress. ENT: Neck is soft and supple. No significant lymphadenopathy is noted. Oropharynx is clear. Moist mucous membranes. Neck has full range of motion without eliciting any pain. EYES: The sclera were anicteric and conjunctiva were pink and moist. Extraocular movements were intact and pupils were equal round and reactive to light. Eyelids were unremarkable. PULMONARY: Unlabored respirations. Good breath sounds bilaterally. No audible rales rhonchi or wheezing was noted. CARDIOVASCULAR: There is a regular rate and rhythm without any murmurs gallops or rubs. ABDOMEN: Soft and nontender with normal bowel sounds. SKIN: Skin is clear with no lesions or rashes and otherwise unremarkable. NEUROLOGIC: Patient is alert and oriented x3. Cranial nerves II through XII are grossly intact. Motor and sensory are also intact. Normal speech, volume and content. Symmetrical smile. Cerebellar exam grossly intact. Patient's NIH is 0 MUSCULOSKELETAL: Normal extremities with adequate strength and full range of motion. . LYMPHATICS: No significant lymphadenopathy is noted PSYCHIATRIC: Patient is mildly anxious Limitations: no limitations Course Vital Signs 08/07/20 08/07/20 08/07/20 08:54 09:20 09:52 Temperature 98 F Pulse Rate 89 85 74 Respiratory 18 16 16 Rate Blood Pressure 177/118 140/89 O2 Sat by Pulse 96 95 95 Oximetry 08/07/20 10:19 Temperature Pulse Rate 79 Respiratory 16 Rate Blood Pressure 142/90 O2 Sat by Pulse 95 Oximetry Medical Decision Making - Medical Decision Making EKG shows normal sinus rhythm at 73 bpm KS interval 264 QRS is 94 QT interval 382 QTC is 420. Patient's EKG shows no ST segment elevation or depression. CT of the brain shows no acute abnormalities. Chest x-ray shows no acute abnormalities. Patient had not had any more symptoms similar to those that he had left-sided 10:00 in those symptoms only lasted 3 seconds. Patient is advised to follow-up with his primary as well as an budget technician - Lab Data Result diagrams: 08/07/20 09:35 08/07/20 09:35 Lab Results 08/07/20 08/07/20 08/07/20 Range/Units 09:08 09:35 09:35 WBC 6.6 (3.8-10.6) k/uL RBC 5.41 (4.30-5.90) m/uL Hgb 17.1 (13.0-17.5) gm/dL Hct 48.0 (39.0-53.0) % MCV 88.7 (80.0-100.0) fL MCH 31.6 (25.0-35.0) pg MCHC 35.6 (31.0-37.0) g/dL RDW 12.5 (11.5-15.5) % Plt Count 217 (150-450) k/uL MPV 8.0 Neutrophils % 67 % Lymphocytes % 21 % Monocytes % 7 % Eosinophils % 3 % Basophils % 1 % Neutrophils # 4.4 (1.3-7.7) k/uL Lymphocytes # 1.4 (1.0-4.8) k/uL Monocytes # 0.5 (0-1.0) k/uL Eosinophils # 0.2 (0-0.7) k/uL Basophils # 0.1 (0-0.2) k/uL PT 11.2 (9.0-12.0) sec INR 1.1 (<1.2) APTT 23.7 (22.0-30.0) sec Sodium (137-145) mmol/L Potassium (3.5-5.1) mmol/L Chloride (98-107) mmol/L Carbon Dioxide (22-30) mmol/L Anion Gap mmol/L BUN (9-20) mg/dL Creatinine (0.66-1.25) mg/dL Est GFR (CKD-EPI)AfAm (>60 ml/min/1.73 sqM) Est GFR (CKD-EPI)NonAf (>60 ml/min/1.73 sqM) Glucose (74-99) mg/dL POC Glucose (mg/dL) 128 H (75-99) mg/dL POC Glu Anesthesiology Physician ID Medina Hidalgo Calcium (8.4-10.2) mg/dL Total Bilirubin (0.2-1.3) mg/dL AST (17-59) U/L ALT (4-49) U/L Alkaline Phosphatase (38-126) U/L Troponin I (0.000-0.034) ng/mL Total Protein (6.3-8.2) g/dL Albumin (3.5-5.0) g/dL 08/07/20 08/07/20 Range/Units 09:35 09:35 WBC (3.8-10.6) k/uL RBC (4.30-5.90) m/uL Hgb (13.0-17.5) gm/dL Hct (39.0-53.0) % MCV (80.0-100.0) fL MCH (25.0-35.0) pg MCHC (31.0-37.0) g/dL RDW (11.5-15.5) % Plt Count (150-450) k/uL MPV Neutrophils % % Lymphocytes % % Monocytes % % Eosinophils % % Basophils % % Neutrophils # (1.3-7.7) k/uL Lymphocytes # (1.0-4.8) k/uL Monocytes # (0-1.0) k/uL Eosinophils # (0-0.7) k/uL Basophils # (0-0.2) k/uL PT (9.0-12.0) sec INR (<1.2) APTT (22.0-30.0) sec Sodium 137 (137-145) mmol/L Potassium 4.3 (3.5-5.1) mmol/L Chloride 102 (98-107) mmol/L Carbon Dioxide 27 (22-30) mmol/L Anion Gap 8 mmol/L BUN 13 (9-20) mg/dL Creatinine 1.01 (0.66-1.25) mg/dL Est GFR (CKD-EPI)AfAm 89 (>60 ml/min/1.73 sqM) Est GFR (CKD-EPI)NonAf 77 (>60 ml/min/1.73 sqM) Glucose 130 H (74-99) mg/dL POC Glucose (mg/dL) (75-99) mg/dL POC Glu Anesthesiology Physician ID Calcium 9.6 (8.4-10.2) mg/dL Total Bilirubin 1.0 (0.2-1.3) mg/dL AST 29 (17-59) U/L ALT 26 (4-49) U/L Alkaline Phosphatase 78 (38-126) U/L Troponin I <0.012 (0.000-0.034) ng/mL Total Protein 7.6 (6.3-8.2) g/dL Albumin 4.4 (3.5-5.0) g/dL Disposition Clinical Impression: Visual disturbance Disposition: HOME SELF-CARE Condition: Good Instructions (If sedation given, give patient instructions): Blurred Vision (ED) Is patient prescribed a controlled substance at d/c from ED?: No Referrals: Jordan Em DO [Primary Care Provider] - 1-2 days Time of Disposition: 11:08
[2020-08-07 10:18] LABS: Basophils # (A) 0.1 k/uL (0-0.2); Basophils % (A) 1 %; Eosinophils # (A) 0.2 k/uL (0-0.7); Eosinophils % (A) 3 %; HGB 17.1 gm/dL (13.0-17.5); Lymphocytes # (A) 1.4 k/uL (1.0-4.8); Lymphocytes % (A) 21 %; MCH 31.6 pg (25.0-35.0); MCHC 35.6 g/dL (31.0-37.0); MCV 88.7 fL (80.0-100.0); Monocytes # (A) 0.5 k/uL (0-1.0); Monocytes % (A) 7 %; Neutrophils # (A) 4.4 k/uL (1.3-7.7); Neutrophils % (A) 67 %; Platelet Count 217 k/uL (150-450); RBC 5.41 m/uL (4.30-5.90); RDW 12.5 % (11.5-15.5); WBC 6.6 k/uL (3.8-10.6)
--- NOTE | 2020-08-07 10:19 | XR ---
EXAMINATION TYPE: XR chest 2V DATE OF EXAM: 08/07/2020 COMPARISON: 12/06/19 HISTORY: Shortness of breath TECHNIQUE: Frontal and lateral views of the chest are obtained. FINDINGS: Scattered senescent parenchymal changes noted. Hyperinflation compatible with COPD. No evidence for infiltrate. No evidence for atelectasis. Heart size is stable. Mediastinal structures are stable and grossly unremarkable. No evidence for hilar prominence. Degenerative changes dorsal spine. IMPRESSION: 1. No evidence for acute pulmonary disease.
[2020-08-07 10:20] VITALS: BP 142/90; PULSE 79
--- NOTE | 2020-08-07 10:23 | CT ---
EXAMINATION TYPE: CT brain wo con DATE OF EXAM: 08/07/2020 COMPARISON: 03/13/2013 HISTORY: 69-year-old male neurologic deficits, acute, stroke suspected, dizziness, vision changes TECHNIQUE: Examination was done in axial plane without intravenous contrast. Coronal and sagittal r econstructions performed. CT DLP: 1092.4 mGycm Automated exposure control for dose reduction was used. FINDINGS: There is no evidence of acute intracranial hemorrhage, acute ischemic changes, mass, mass-effect, or extra-axial fluid collection. There is no effacement of cerebral sulci or basal subarachnoid cister ns. There is no hydrocephalus. There is no midline shift. [place]-white matter distinction is preserv ed. Moderate mucosal thickening anterior ethmoid air cells, right sphenoid sinus, and mild within the max illary sinuses. Rightward nasal septal deviation. Prior FESS. Mastoid air cells well pneumatized. Orb its and globes are intact. IMPRESSION: No acute intracranial abnormality seen. [id number] chronic paranasal sinus disease with prior s inonasal surgery.
[2020-08-07 10:29] LABS: Albumin 4.4 g/dL (3.5-5.0); Calcium 9.6 mg/dL (8.4-10.2); Potassium 4.3 mmol/L (3.5-5.1); Total Protein 7.6 g/dL (6.3-8.2)
[2020-08-07 10:31] LABS: INR 1.1 (<1.2); Partial Thromboplastin Time 23.7 sec (22.0-30.0); Prothrombin Time 11.2 sec (9.0-12.0)
== END 2020-08-07 11:28 | disposition home or self-care (01) ==
LOC: EC 08:48
DX: H53.9 Unspecified visual disturbance (principal); R42 Dizziness and giddiness; I48.91 Unspecified atrial fibrillation; E78.5 Hyperlipidemia, unspecified; I10 Essential (primary) hypertension; G47.30 Sleep apnea, unspecified; F41.9 Anxiety disorder, unspecified; F32.9 Major depressive disorder, single episode, unspecified; Z87.891 Personal history of nicotine dependence
CPT/HCPCS: 36415; 93005; 80053; 84484; 85025; 85610; 85730; 71046; 70450; 99285; 96374; 96361 ×2; J2060

== ENCOUNTER → 2020-08-21 | Day surgery (SDC) | payer MEDICARE, BC ==
[2020-08-18 13:24] VITALS: BMI 36.6
[2020-08-21 10:51] VITALS: BP 138/100; PULSE 57; RESP 18; TEMP 98.2
--- NOTE | 2020-08-21 13:05 | P.EPPROC ---
- EP Procedure Note Electrophysiology Procedure Note: Diagnosis Recurrent dizzy spells Twelve-lead EKG Sinus rhythm normal MT narrow) normal ST segments heart rate 57 beats a minute Tilt table test per protocol Baseline blood pressure 180-190 /105 mmHg Baseline heart rate 58 beats a minute Patient was tilted upright at an angle of 70 There was an immediate drop in his blood pressure 267/95 mmHg without any change in heart rate Thereafter there was a gradual progressive reduction in his blood pressure Finally with a blood pressure lesions 100/63 mmHg and his heart rate still remained unchanged in the mid 50s, he felt very dizzy was nauseous and he felt as he was going to pass out. He could not stand any further and requested to be laid supine When he is laid supine his blood pressure increased to 115/79 mmHg while his heart rate was in the mid 40s Impression Dysautonomia/sympathetic failure Normal twelve-lead EKG
== END ==
LOC: CATHEP 10:25
PROVIDERS: ATTEND Internal Medicine Clinical Cardiac Electrophysiology
DX: G90.1 Familial dysautonomia [Riley-Day] (principal); I48.0 Paroxysmal atrial fibrillation; I10 Essential (primary) hypertension; I34.0 Nonrheumatic mitral (valve) insufficiency; E78.5 Hyperlipidemia, unspecified; Z20.822 Contact with and (suspected) exposure to COVID-19; Z87.891 Personal history of nicotine dependence; Z82.49 Family history of ischemic heart disease and other diseases of the circulatory system; Z79.01 Long term (current) use of anticoagulants; Z79.899 Other long term (current) drug therapy
CPT/HCPCS: 87635; 93660

== ENCOUNTER → 2022-02-18 | Outpatient (CLI) | payer OTHER ==
--- NOTE | 2022-02-18 14:30 | P.SLEEP ---
History of Present Illness DATE: 02/18/2022 CONSULTATION/NEW PATIENT EVALUATION HISTORY OF PRESENT ILLNESS/SLEEP-WAKE EVALUATION: 71year old gentleman had been evaluated in the sleep center for possible obstructive sleep apnea hypopnea syndrome. SLEEP SCHEDULE: Usually sleep schedule from midnight until 9:30 AM. FALLING ASLEEP Sometimes patient has problems with falling asleep, has TV set and bedroom]. DURING SLEEP:Patient snores, wakes up from sleep multiple times with nocturia. Positive history of panic attack, palpitation, sweating, sleep talking, gasping for air. Positive history of out of dream movements. ] No history of hypnogogical hallucinations, sleep paralysis, or cataplexy. DURING THE DAY/WAKE STATE In the morning patient wake up tired, has difficulties to put pretension, has problems with concentration, sleepiness]. [place] sleepiness scale i 9] Patient takes nap one time a day usually afternoon]. PAST MEDICAL HISTORY Hypertension, history of atrial fibrillation, hyperlipidemia, anxiety, carpal tunnel syndrome]. PAST SURGICAL HISTORY Surgery for carpal tunnel syndrome bilaterally, surgical treatment of inguinal hernia, tonsillectomy]. MEDICATIONS Lisinopril 10 mg twice a day, paroxetine once a day, metoprolol 25 mg twice a day, Eliquis 5 mg twice a day, clonazepam 0.25 mg twice a day]. SOCIAL HISTORY Positive history of smoking for about 40 pack years, quit smoking, alcohol consumption none at the present time. FAMILY HISTORY:Hypertension, heart problems, sleep apnea, mental illness]. REVIEW OF SYSTEMS:Snoring, multiple awakenings from sleep, out of dream movements]. No fevers. No double vision. No recent chest pain. No shortness of breath. No abdominal pain. No bleeding episodes. No blood in urine. No seizure episodes. PHYSICAL EXAMINATION: GENERAL: A pleasant patient without any distress. VITAL SIGNS: BP 154/93 , HR 62 , RR 20 , weigh 306.8 pounds, heigh 6 ]tj three-quarter ]inches, body mass inde 40.7 . HEENT: PERRLA, EOMI. Evaluation of oropharynx showed tongue protrudes midline, low position of soft palate Mallampat 4]. NECK: Supple. No JVD. Thyroid is not palpable 19 and three-quarter inches in circumference. LUNGS: Clear to percussion and to auscultation. Good air exchange. No wheezing or rhonchi. HEART: S1, S2 regular. No murmurs, gallops or rubs. ABDOMEN: Soft and nontender. Bowel sounds are present. No organomegaly appreciated. Obese EXTREMITIES: No clubbing or cyanosis. LATHE SCALPER OPERATOR: Awake, alert, and oriented x3. Cranial nerves 2 to 7 intact. There is no fasciculation or atrophy noted. No focal deficits observed. ASSESSMENT: 1 Snoring, multiple awakenings from sleep, extremely low position of soft palate Mallampati 4, extremely wide neck more than 19 inches. Obst ructive sleep apnea-hypopnea syndrome]. 2 Obesity body mass index 40.7]. 3 out of dream movements, possibly REM sleep behavior disorder]. 4 Hypertension]. 5.history of atrial fibrillation]. 6 Hyperlipidemia]. 7 Anxiety]. 8 Status post bilateral surgery for carpal tunnel syndrome]. 9 Status post tonsillectomy]. 10 Status post inguinal Hernia repair]. PLAN: 1. Polysomnography for evaluation of patient's breathing during sleep and for diagnosis of REM sleep behavior disorder. 2. CPAP/BiPAP titration if sleep study confirms obstructive sleep apnea- hypopnea syndrome. 3. Preferable position during sleep on the side. 4. No driving if patient feels any sleepiness. Patient is aware of civil and criminal liability for unsafe driving. 5. Sleep hygiene with regular sleep time for at least 7.5-8 hours. 6. Watching and losing weight. 7. Precautions related to possibly REM sleep behavior disorder. Consider to put mattress on the floor. Thank you very much for referring this patient for consultation. Sincerely, Jamar Musa MD, PhD, FAASM. Diplomat of [place] [employer], Sleep Medicine Board by [place] [employer] [place] [employer] [facility] [place] Past Medical History Past Medical History: Atrial Fibrillation, Hyperlipidemia, Hypertension Additional Past Medical History / Comment(s): See Dr Roe's H&P History of Any Multi-Drug Resistant Organisms: None Reported Past Surgical History: Ablation, Hernia Repair, Orthopedic Surgery, Tonsillectomy Additional Past Surgical History / Comment(s): juliet inguinal hernia, julite carpal tunnel Past Anesthesia/Blood Transfusion Reactions: No Reported Reaction Smoking Status: Former smoker - Past Family History Sister(s) Family Medical History: Cancer Medications and Allergies Home Medications Medication Instructions Recorded Confirmed Type Multivitamins, Thera [Multivitamin 1 tab PO DAILY 12/06/19 08/21/20 History (formulary)] Apixaban [Eliquis] 5 mg PO BID #60 tab 12/07/19 08/21/20 Rx Metoprolol Tartrate [Lopressor] 25 mg PO BID #60 tab 12/08/19 08/21/20 Rx lisinopriL [Zestril] 20 mg PO 1200 12/19/19 08/21/20 History PARoxetine [Paxil] 20 mg PO 1200 08/18/20 08/21/20 History clonazePAM [KlonoPIN] 0.5 mg PO BID PRN 08/18/20 08/21/20 History Allergies Allergy/AdvReac Type Severity Reaction Status Date / Time No Known Allergies Allergy Verified 08/21/20 10:34 Sleep Note - Sleep Note Sleep Note: Temperature: Pulse Rate: Respiratory Rate: Blood Pressure: SpO2: Height: Weight: BMI: Neck Circumference:
== END ==
LOC: SLEEP 13:31
PROVIDERS: ATTEND Internal Medicine
DX: G47.33 Obstructive sleep apnea (adult) (pediatric) (principal); F41.0 Panic disorder [episodic paroxysmal anxiety]; I10 Essential (primary) hypertension; I48.91 Unspecified atrial fibrillation; E78.5 Hyperlipidemia, unspecified; F41.9 Anxiety disorder, unspecified; Z87.891 Personal history of nicotine dependence; E66.9 Obesity, unspecified; Z68.41 Body mass index [BMI] 40.0-44.9, adult; G56.03 Carpal tunnel syndrome, bilateral upper limbs; Z98.890 Other specified postprocedural states; Z90.89 Acquired absence of other organs; Z99.89 Dependence on other enabling machines and devices
CPT/HCPCS: 99211

== ENCOUNTER 2022-04-19 11:52 | Emergency (ER) | payer BC, OTHER ==
[2022-04-19 12:10] VITALS: RESP 18
[2022-04-19] MEDS ORDERED: SODIUM CHLORIDE 0.9% 1,000 ML IV ONE (12:38)
[2022-04-19 13:36] LABS: Basophils # (A) 0.1 k/uL (0-0.2); Basophils % (A) 2 %; Eosinophils # (A) 0.2 k/uL (0-0.7); Eosinophils % (A) 3 %; HCT 48.5 % (39.0-53.0); HGB 16.4 gm/dL (13.0-17.5); Lymphocytes # (A) 1.2 k/uL (1.0-4.8); Lymphocytes % (A) 20 %; MCH 29.9 pg (25.0-35.0); MCHC 33.8 g/dL (31.0-37.0); MCV 88.5 fL (80.0-100.0); Mean Platelet Volume 8.8; Monocytes # (A) 0.4 k/uL (0-1.0); Monocytes % (A) 7 %; Neutrophils # (A) 3.8 k/uL (1.3-7.7); Neutrophils % (A) 66 %; Platelet Count 232 k/uL (150-450); RBC 5.48 m/uL (4.30-5.90); RDW 12.9 % (11.5-15.5); WBC 5.8 k/uL (3.8-10.6)
[2022-04-19 14:00] LABS: Albumin 4.2 g/dL (3.5-5.0); Calcium 8.8 mg/dL (8.4-10.2); Potassium 4.9 mmol/L (3.5-5.1); Total Bilirubin 0.9 mg/dL (0.2-1.3); Total Protein 7.2 g/dL (6.3-8.2)
[2022-04-19 15:23] VITALS: PULSE 62
--- NOTE | 2022-04-19 15:43 | ED ---
General Adult HPI - General Chief complaint: ENT Stated complaint: nosebleed Time Seen by Provider: 04/19/22 11:56 Source: patient, EMS Mode of arrival: EMS Limitations: no limitations - History of Present Illness Initial comments: This is a 71-year-old male with a past medical history including atrial fibrillation on Eliquis presented to the emergency department for a nosebleed. The patient stated that he was on his way to go to the [place] a follow-up appointment when he noted that his nose started bleeding. The patient stated that the nosebleed continued to worsen and he had a minor headache sorry called EMS and was brought into the emergency department. The patient had a clamp over the nostrils over the last 1 hour prior to my evaluation. The patient denied any other acute complaints including any lightheadedness or dizziness. The patient stated that he has had a nosebleed as severe before. The patient did state that he took all of his medications as prescribed. The patient denied any trauma to the nose and denied any other acute pain or complaints at this time. - Related Data Home Medications Medication Instructions Recorded Confirmed Multivitamins, Thera [Multivitamin 1 tab PO DAILY 12/06/19 08/21/20 (formulary)] lisinopriL [Zestril] 20 mg PO 1200 12/19/19 08/21/20 PARoxetine [Paxil] 20 mg PO 1200 08/18/20 08/21/20 clonazePAM [KlonoPIN] 0.5 mg PO BID PRN 08/18/20 08/21/20 Previous Rx's Medication Instructions Recorded Apixaban [Eliquis] 5 mg PO BID #60 tab 12/07/19 Metoprolol Tartrate [Lopressor] 25 mg PO BID #60 tab 12/08/19 Allergies Allergy/AdvReac Type Severity Reaction Status Date / Time No Known Allergies Allergy Verified 04/19/22 12:10 Review of Systems ROS Statement: Those systems with pertinent positive or pertinent negative responses have been documented in the HPI. ROS Other: All systems not noted in ROS Statement are negative. Past Medical History Past Medical History: Atrial Fibrillation, Hyperlipidemia, Hypertension Additional Past Medical History / Comment(s): See Dr Roe's H&P History of Any Multi-Drug Resistant Organisms: None Reported Past Surgical History: Ablation, Hernia Repair, Orthopedic Surgery, Tonsillectomy Additional Past Surgical History / Comment(s): juliet inguinal hernia, juliet carpal tunnel Past Anesthesia/Blood Transfusion Reactions: No Reported Reaction Past Psychological History: Anxiety, Depression Smoking Status: Former smoker Past Alcohol Use History: None Reported Past Drug Use History: None Reported - Past Family History Sister(s) Family Medical History: Cancer General Exam Limitations: no limitations General appearance: alert, in no apparent distress Head exam: Present: atraumatic, normocephalic Eye exam: Present: normal appearance, PERRL Pupils: Present: normal accommodation ENT exam: Present: other (Dried blood noted in the bilateral naris without any active bleeding noted) Neck exam: Present: normal inspection, full ROM Respiratory exam: Present: normal lung sounds bilaterally Cardiovascular Exam: Present: regular rate, normal rhythm, normal heart sounds GI/Abdominal exam: Present: soft Extremities exam: Present: normal inspection, full ROM, normal capillary refill Back exam: Present: normal inspection, full ROM Neurological exam: Present: alert, oriented X3, CN II-XII intact Psychiatric exam: Present: normal affect, normal mood Skin exam: Present: warm, dry Course Vital Signs 04/19/22 04/19/22 04/19/22 11:54 13:27 16:16 Temperature 97.6 F 98.0 F Pulse Rate 68 62 62 Respiratory 18 18 18 Rate Blood Pressure 168/99 122/90 142/89 O2 Sat by Pulse 96 96 94 L Oximetry Medical Decision Making - Medical Decision Making The patient was seen and evaluated in the emergency department. Physical exam, the patient was resting in bed without any acute distress. Vital signs admission did show hypertension however repeat blood pressure did decrease significantly. The patient had a nasal clamp on my evaluation. The clamp was removed as it had been on there for one hour. The patient had laboratory workup obtained and was within normal limits. The patient denied of any recurrence of his nosebleed therefore was deemed stable for discharge. The patient was advised to follow-up with his primary care physician and [facility] scheduled [facility]. The patient was advised to repor t back to the emergency department if his pain became acutely worse. The patient was agreeable to this and all discretions were answered. The patient was discharged home in stable condition. - Lab Data Result diagrams: 04/19/22 13:22 04/19/22 13:22 Lab Results 12/04/19/22 04/19/22 Range/Units 13:22 13:22 13:22 WBC 5.8 (3.8-10.6) k/uL RBC 5.48 (4.30-5.90) m/uL Hgb 16.4 (13.0-17.5) gm/dL Hct 48.5 (39.0-53.0) % MCV 88.5 (80.0-100.0) fL MCH 29.9 (25.0-35.0) pg MCHC 33.8 (31.0-37.0) g/dL RDW 12.9 (11.5-15.5) % Plt Count 232 (150-450) k/uL MPV 8.8 Neutrophils % 66 % Lymphocytes % 20 % Monocytes % 7 % Eosinophils % 3 % Basophils % 2 % Neutrophils # 3.8 (1.3-7.7) k/uL Lymphocytes # 1.2 (1.0-4.8) k/uL Monocytes # 0.4 (0-1.0) k/uL Eosinophils # 0.2 (0-0.7) k/uL Basophils # 0.1 (0-0.2) k/uL Sodium 133 L (137-145) mmol/L Potassium 4.9 (3.5-5.1) mmol/L Chloride 100 (98-107) mmol/L Carbon Dioxide 29 (22-30) mmol/L Anion Gap 4 mmol/L BUN 16 (9-20) mg/dL Creatinine 1.00 (0.66-1.25) mg/dL Est GFR (CKD-EPI)AfAm 88 (>60 ml/min/1.73 sqM) Est GFR (CKD-EPI)NonAf 77 (>60 ml/min/1.73 sqM) Glucose 99 (74-99) mg/dL Calcium 8.8 (8.4-10.2) mg/dL Total Bilirubin 0.9 (0.2-1.3) mg/dL AST 28 (17-59) U/L ALT 25 (4-49) U/L Alkaline Phosphatase 60 (38-126) U/L Troponin I <0.012 (0.000-0.034) ng/mL Total Protein 7.2 (6.3-8.2) g/dL Albumin 4.2 (3.5-5.0) g/dL Disposition Clinical Impression: Nosebleed Disposition: HOME SELF-CARE Condition: Stable Instructions (If sedation given, give patient instructions): Nosebleed (ED) Is patient prescribed a controlled substance at d/c from ED?: No Referrals: [facility],Clinic [Primary Care Provider] - 1-2 days Time of Disposition: 14:50
[2022-04-19 16:18] VITALS: BP 142/89; TEMP 98
== END 2022-04-19 16:16 | disposition home or self-care (01) ==
LOC: EC 11:52
DX: R04.0 Epistaxis (principal); I48.91 Unspecified atrial fibrillation; I10 Essential (primary) hypertension; F41.9 Anxiety disorder, unspecified; F32.A Depression, unspecified; Z87.891 Personal history of nicotine dependence; Z79.01 Long term (current) use of anticoagulants; Z79.899 Other long term (current) drug therapy
CPT/HCPCS: 36415; 80053; 84484; 85025; 96360; 99284

== ENCOUNTER → 2022-05-22 | Outpatient (CLI) | payer OTHER ==
--- NOTE | 2022-05-23 04:44 | MR ---
EXAMINATION TYPE: MR brain wo con DATE OF EXAM: 05/22/2022 COMPARISON: None HISTORY: Dizziness, distorted vision, nose bleeds. Multiplanar and multiecho imaging of the brain performed without contrast. Diffusion images show no e vidence of an acute infarct. Slight thinning of the corpus callosum. There is very slight increased signal in the periventricular white matter which is poorly marginated on the FLAIR images. There is minimal cerebral atrophy. No evidence of posterior fossa mass. The brai nstem is intact cerebellum is intact. IMPRESSION: Mild atrophy. Minimal white matter changes on the T2 and FLAIR images is consistent with age-related white matter disease. I do not suspect demyelinating disease or lacunar infarct.
== END | disposition home or self-care (01) ==
LOC: RADMRIMAIN 13:31
PROVIDERS: ATTEND Physician Assistant
DX: R90.82 White matter disease, unspecified (principal); G31.9 Degenerative disease of nervous system, unspecified; R42 Dizziness and giddiness
CPT/HCPCS: 70551

== ENCOUNTER 2024-11-28 21:44 | Emergency (ER) | payer OTHER, BC ==
[2024-11-28 21:53] VITALS: TEMP 98
[2024-11-28 21:59] LABS: Glucose,Whole Blood 146 mg/dL (70-110)
--- NOTE | 2024-11-28 22:05 | ED ---
General Adult HPI - General Chief complaint: Fall Stated complaint: Fall on Thinners Time Seen by Provider: 11/28/24 21:45 Source: patient, RN notes reviewed, old records reviewed Mode of arrival: EMS Limitations: no limitations - History of Present Illness Initial comments: 74-year-old male presents status post fall. Patient had apparently fallen back wards at home striking his head on a piece of furniture. There was loss consciousness. The patient had been drinking alcohol today. It was reported that the patient was on Coumadin and therefore he was an activated code coag in the emergency department. Patient is able to answer simple questions but is quite intoxicated upon arrival. Paramedics did not note any external signs of trauma. - Related Data Home Medications Medication Instructions Recorded Confirmed Multivitamins, Thera [Multivitamin 1 tab PO DAILY 12/06/19 08/21/20 (formulary)] lisinopriL [Zestril] 20 mg PO 1200 12/19/19 08/21/20 PARoxetine [Paxil] 20 mg PO 1200 08/18/20 08/21/20 clonazePAM [KlonoPIN] 0.5 mg PO BID PRN 08/18/20 08/21/20 Previous Rx's Medication Instructions Recorded Apixaban [Eliquis] 5 mg PO BID #60 tab 12/07/19 Metoprolol Tartrate [Lopressor] 25 mg PO BID #60 tab 12/08/19 Allergies Allergy/AdvReac Type Severity Reaction Status Date / Time No Known Allergies Allergy Verified 04/19/22 12:10 Review of Systems ROS Statement: Those systems with pertinent positive or pertinent negative responses have been documented in the HPI. ROS Other: All systems not noted in ROS Statement are negative. Past Medical History Past Medical History: Atrial Fibrillation, Hyperlipidemia, Hypertension Additional Past Medical History / Comment(s): See Dr Roe's H&P History of Any Multi-Drug Resistant Organisms: None Reported Past Surgical History: Ablation, Hernia Repair, Orthopedic Surgery, Tonsillectomy Additional Past Surgical History / Comment(s): juliet inguinal hernia, juliet carpal tunnel Past Anesthesia/Blood Transfusion Reactions: No Reported Reaction Past Psychological History: Anxiety, Depression Smoking Status: Former smoker Past Alcohol Use History: None Reported Past Drug Use History: None Reported - Past Family History Sister(s) Family Medical History: Cancer General Exam Limitations: no limitations General appearance: alert, appears intoxicated Head exam: Present: atraumatic, normocephalic Eye exam: Present: normal appearance, PERRL Neck exam: Present: normal inspection, other (Immobilized with towel roll) Respiratory exam: Present: decreased breath sounds. Absent: respiratory distress, wheezes Cardiovascular Exam: Present: regular rate, normal rhythm GI/Abdominal exam: Present: soft. Absent: distended, tenderness, guarding Extremities exam: Present: normal inspection, normal capillary refill Neurological exam: Present: alert, CN II-XII intact. Absent: motor sensory deficit Psychiatric exam: Present: normal affect, normal mood Skin exam: Present: warm, dry, intact. Absent: cyanosis, diaphoretic Course Vital Signs 11/28/24 11/28/24 21:46 22:28 Temperature 98.0 F Pulse Rate 79 91 Respiratory 20 20 Rate Blood Pressure 119/58 114/76 O2 Sat by Pulse 94 L 94 L Oximetry Medical Decision Making - Medical Decision Making Was pt. sent in by a medical professional or institution (, PA, EMERGENCY ROOM PHYSICIAN ASSISTANT, urgent care, hospital, or retirement...) When possible be specific @ -No Did you speak to anyone other than the patient for history (EMS, parent, family, police, friend...)? What history was obtained from this source @ -No Did you review nursing and triage notes (agree or disagree)? Why? @ -I reviewed and agree with nursing and triage notes Were old charts reviewed (outside hosp., previous admission, EMS record, old EKG, old radiological studies, urgent care reports/EKG's, retirement records)? Report findings @ -No old charts were reviewed Differential Diagnosis traumatic injury from fall, intracranial hemorrhage, cervical fracture or subluxation EKG interpreted by me (3pts min.). @Sinus rhythm rate of 81, W[place] interval 138, QRS duration 99, QTc [address] segment elevation. X-rays interpreted by me (1pt min.). @ -None done CT interpreted by me (1pt min.). @ -CT negative for intracranial hemorrhage or mass effect U/S interpreted by me (1pt. min.). @ -None done What testing was considered but not performed or refused? (CT, X-rays, U/S, labs)? Why? @ -None What meds were considered but not given or refused? Why? @ -None Did you discuss the management of the patient with other professionals (professionals i.e. DrElysia, PA, EMERGENCY ROOM PHYSICIAN ASSISTANT, lab, RT, psych nurse, social service assistant, welding machine operator thermit, teacher, bomb squad officer, skilled nursing case manager)? Give summary @ -No Was smoking cessation discussed for >3mins.? @ -No Was critical care preformed (if so, how long)? @ -Yes, 35 minutes. Were there social determinants of health that impacted care today? How? (Homelessness, low income, unemployed, alcoholism, drug addiction, transportation, low edu. Level, literacy, decrease access to med. care, [facility], rehab)? @ -No Was there de-escalation of care discussed even if they declined (Discuss DNR or withdrawal of care, Hospice)? DNR status @ -No What co-morbidities impacted this encounter? (DM, HTN, Smoking, COPD, CAD, Cancer, CVA, ARF, Chemo, Hep., AIDS, mental health diagnosis, sleep apnea, morbid obesity)? @ -Atrial fibrillation Was patient admitted / discharged? Hospital course, mention meds given and route, prescriptions, significant lab abnormalities, going to OR and other pertinent info. @ -74-year-old presenting status post fall with head injury and loss consciousness. Patient is on blood thinners. He is activated code coag. Taken immediately to CT, CT is negative for intracranial hemorrhage or mass effect. Patient regains a normal level of consciousness to the emergency department with stable vitals. He does have a serum alcohol which is elevated. He has family member at bedside who is able to take the patient home. Stable for discharge at this time. Undiagnosed new problem with uncertain prognosis? @ -No Drug Therapy requiring intensive monitoring for toxicity (Heparin, Nitro, Insulin, Cardizem)? @ -No Were any procedures done? @ -No Diagnosis/symptom? @ -Alcohol intoxication, concussion Acute, or Chronic, or Acute on Chronic? @ -[Acute Uncomplicated (without systemic symptoms) or Complicated (systemic symptoms)? @ -Default Side effects of treatment? @ -No Exacerbation, Progression, or Severe Exacerbation? @ -No Poses a threat to life or bodily function? How? (Chest pain, USA, GA, pneumonia, PE, COPD, DKA, ARF, appy, cholecystitis, CVA, Diverticulitis, Homicidal, Suicidal, threat to staff... and all critical care pts) @ -No MDM - Lab Data Result diagrams: 11/28/24 21:59 11/28/24 21:59 Lab Results 11/28/24 11/28/24 11/28/24 Range/Units 21:58 21:59 21:59 WBC 9.61 (4.50-10.00) 10*3/uL RBC 5.10 (4.40-5.60) 10*6/uL Hgb 15.3 (13.0-17.0) g/dL Hct 44.9 (39.6-50.0) % MCV 88.0 (80.0-97.0) fL MCH 30.0 (27.0-32.0) pg MCHC 34.1 (32.0-37.0) g/dL Plt Count 214 (140-440) 10*3/uL MPV 10.8 (9.5-12.2) fL Immature Gran % (Auto) 0.7 % Neutrophils % 56.0 % Lymphocytes % 31.7 % Monocytes % 9.1 % Eosinophils % 1.8 % Basophils % 0.7 % Immature Gran # 0.07 H (0.00-0.04) 10*3/uL Neutrophils # 5.38 (1.80-7.70) 10*3/uL Lymphocytes # 3.05 (0.90-5.00) 10*3/uL Monocytes # 0.87 (0.20-1.00) 10*3/uL Eosinophils # 0.17 (0.04-0.35) 10*3/uL Basophils # 0.07 (0.00-0.10) 10*3/uL PT (10.0-12.5) sec INR (<1.2) APTT (22.0-30.0) sec Sodium 134 L (137-145) mmol/L Potassium 4.6 (3.5-5.1) mmol/L Chloride 98 (98-107) mmol/L Carbon Dioxide 23 (22-30) mmol/L Anion Gap 13 mmol/L BUN 15 (9-20) mg/dL Creatinine 1.54 H (0.66-1.25) mg/dL Est GFR (CKD-EPI)AfAm 51 (>60 ml/min/1.73 sqM) Est GFR (CKD-EPI)NonAf 44 (>60 ml/min/1.73 sqM) Glucose 150 H (74-99) mg/dL POC Glucose (mg/dL) 146 H (70-110) mg/dL POC Glu [employer] Lead VIVIANE Pizarro Calcium 9.6 (8.4-10.2) mg/dL Total Bilirubin 0.4 (0.2-1.3) mg/dL AST 29 (17-59) U/L ALT 24 (4-49) U/L Alkaline Phosphatase 57 (38-126) U/L Total Protein 7.2 (6.3-8.2) g/dL Albumin 4.3 (3.5-5.0) g/dL Serum Alcohol 159 mg/dL 11/28/24 Range/Units 21:59 WBC (4.50-10.00) 10*3/uL RBC (4.40-5.60) 10*6/uL Hgb (13.0-17.0) g/dL Hct (39.6-50.0) % MCV (80.0-97.0) fL MCH (27.0-32.0) pg MCHC (32.0-37.0) g/dL Plt Count (140-440) 10*3/uL MPV (9.5-12.2) fL Immature Gran % (Auto) % Neutrophils % % Lymphocytes % % Monocytes % % Eosinophils % % Basophils % % Immature Gran # (0.00-0.04) 10*3/uL Neutrophils # (1.80-7.70) 10*3/uL Lymphocytes # (0.90-5.00) 10*3/uL Monocytes # (0.20-1.00) 10*3/uL Eosinophils # (0.04-0.35) 10*3/uL Basophils # (0.00-0.10) 10*3/uL PT 11.5 (10.0-12.5) sec INR 1.1 (<1.2) APTT 21.9 L (22.0-30.0) sec Sodium (137-145) mmol/L Potassium (3.5-5.1) mmol/L Chloride (98-107) mmol/L Carbon Dioxide (22-30) mmol/L Anion Gap mmol/L BUN (9-20) mg/dL Creatinine (0.66-1.25) mg/dL Est GFR (CKD-EPI)AfAm (>60 ml/min/1.73 sqM) Est GFR (CKD-EPI)NonAf (>60 ml/min/1.73 sqM) Glucose (74-99) mg/dL POC Glucose (mg/dL) (70-110) mg/dL POC Glu Project Lead ID Calcium (8.4-10.2) mg/dL Total Bilirubin (0.2-1.3) mg/dL AST (17-59) U/L ALT (4-49) U/L Alkaline Phosphatase (38-126) U/L Total Protein (6.3-8.2) g/dL Albumin (3.5-5.0) g/dL Serum Alcohol mg/dL Disposition Clinical Impression: Fall, Concussion Disposition: HOME SELF-CARE Condition: Fair Instructions (If sedation given, give patient instructions): Concussion (ED), Fall Prevention for Older Adults (ED) Is patient prescribed a controlled substance at d/c from ED?: No Referrals: Hung Junior DO [Primary Care Provider] - 1-2 days Time of Disposition: 23:34
[2024-11-28 22:12] LABS: Basophils # (A) 0.07 10*3/uL (0.00-0.10); Basophils % (A) 0.7 %; Eosinophils # (A) 0.17 10*3/uL (0.04-0.35); Eosinophils % (A) 1.8 %; HCT 44.9 % (39.6-50.0); HGB 15.3 g/dL (13.0-17.0); Lymphocytes # (A) 3.05 10*3/uL (0.90-5.00); Lymphocytes % (A) 31.7 %; MCH 30.0 pg (27.0-32.0); MCHC 34.1 g/dL (32.0-37.0); MCV 88.0 fL (80.0-97.0); Monocytes # (A) 0.87 10*3/uL (0.20-1.00); Monocytes % (A) 9.1 %; Neutrophils # (A) 5.38 10*3/uL (1.80-7.70); Neutrophils % (A) 56.0 %; Platelet Count 214 10*3/uL (140-440); RBC 5.10 10*6/uL (4.40-5.60); RDW 13.2 % (11.5-14.5); WBC 9.61 10*3/uL (4.50-10.00)
[2024-11-28 22:22] LABS: ALT 24 U/L (4-49); AST 29 U/L (17-59); African American GFR (CKD) 51 (>60 ml/min/1.73 sqM); Albumin 4.3 g/dL (3.5-5.0); Alkaline Phosphatase 57 U/L (38-126); Anion Gap 13 mmol/L; Blood Urea Nitrogen 15 mg/dL (9-20); Calcium 9.6 mg/dL (8.4-10.2); Carbon Dioxide 23 mmol/L (22-30); Chloride 98 mmol/L (98-107); Glucose 150 mg/dL (74-99); Non-African American GFR(CKD) 44 (>60 ml/min/1.73 sqM); Potassium 4.6 mmol/L (3.5-5.1); Sodium 134 mmol/L (137-145); Total Protein 7.2 g/dL (6.3-8.2)
--- NOTE | 2024-11-28 22:29 | CT ---
EXAM: CT Head Without Intravenous Contrast CLINICAL HISTORY: ITS.REASON CT Reason: Head injury on blood thinner TECHNIQUE: Axial computed tomography images of the head/brain without intravenous contrast. CTDI is 45.2 mGy and DLP is 1028 mGy-cm. This CT exam was performed using one or more of the following dose reduction techniques: automated exposure control, adjustment of the mA and/or kV according to patient size, and/or use of iterative reconstruction technique. Severe dental artifact limiting evaluation of the posterior fossa. COMPARISON: None. FINDINGS: Brain: No mass effect or acute infarct. No acute hemorrhage. Mild atrophy and chronic white matter disease. Limited evaluation of the posterior fossa. No definite focal abnormality. Ventricles: No hydrocephalus or midline shift. Bones/joints: No skull fracture. Soft tissues: No scalp hematoma. Visualized Sinuses: Mild sphenoid mucosal thickening, otherwise, clear. Mastoid air cells: No mastoid effusion. IMPRESSION: 1. Mild age-related findings. 2. No skull fracture, bleed, or acute intracranial abnormality. 3. Severe limited evaluation of the posterior fossa due to dental artifact. EXAM: CT Cervical Spine Without Intravenous Contrast CLINICAL HISTORY: ITS.REASON CT Reason: Head injury on blood thinner TECHNIQUE: Axial computed tomography images of the cervical spine without intravenous contrast. CTDI is 29.8 mGy and DLP is 823.2 mGy-cm. This CT exam was performed using one or more of the following dose reduction techniques: automated exposure control, adjustment of the mA and/or kV according to patient size, and/or use of iterative reconstruction technique. Moderate motion artifact. COMPARISON: None. FINDINGS: Vertebrae: No acute fracture. Discs/spinal canal/neural foramina: Severe degenerative disc and facet disease. Soft tissues: Bilateral carotid atherosclerosis. IMPRESSION: 1. Severe degenerative change. 2. No fracture or acute bony abnormality. 3. Moderate motion artifact.
[2024-11-28 22:40] LABS: INR 1.1 (<1.2); Partial Thromboplastin Time 21.9 sec (22.0-30.0); Prothrombin Time 11.5 sec (10.0-12.5)
[2024-11-29 00:04] VITALS: BP 120/80; PULSE 80; RESP 17
== END 2024-11-29 00:04 | disposition home or self-care (01) ==
LOC: EC 21:44
DX: S06.0XAA Concussion with loss of consciousness status unknown, initial encounter (principal); F10.129 Alcohol abuse with intoxication, unspecified; I48.91 Unspecified atrial fibrillation; R40.2412 Glasgow coma scale score 13-15, at arrival to emergency department; F06.70 Mild neurocognitive disorder due to known physiological condition without behavioral disturbance; Z87.891 Personal history of nicotine dependence; W18.39XA Other fall on same level, initial encounter; Y90.6 Blood alcohol level of 120-199 mg/100 ml; Y92.009 Unspecified place in unspecified non-institutional (private) residence as the place of occurrence of the external cause
CPT/HCPCS: 36415; 70450; 72125; 80053; 80320; 85025; 85610; 85730; 93005; 99291